=== PATIENT | female | born 1995 | race African-American/Black ===

== ENCOUNTER 2017-01-25 06:58 | Emergency (ER) | payer OTHER ==
[~2017-01-25] VITALS: Ht 167.6 cm; Wt 70.5 kg
[~2017-01-25 06:58] MED LIST: NOCURR
[2017-01-25] MEDS ORDERED: KETOROLAC TROMETHAMINE 60 MG/2 ML VIAL IM ONE (08:00)
[2017-01-25] MEDS ORDERED: LORazepam 1 MG TABLET PO ONE (08:00)
[2017-01-25 10:48] VITALS: BP 90/51
== END 2017-01-25 10:52 | disposition home or self-care (01) ==
LOC: EMS 07:00
DX: R07.89 Other chest pain (principal)
CPT/HCPCS: 36415; 71010; 84484; 93005; 96372; 99285; J1885